=== PATIENT | female | born 1990 ===

== ENCOUNTER 2019-06-18 17:26 | Emergency (ER) | payer SELFPAY ==
[2019-06-18] MEDS ORDERED: Ketorolac Tromethamine 30 MG/ML VIAL ONE (17:51)
[2019-06-18 18:07] LABS: Bilirubin Negative (Negative); Blood, Urine Negative (Negative); Clarity Clear (Clear); Glucose, Urine (Dipstick) Normal (Negative); Leukocyte Negative Leu/uL (Negative); Nitrite Negative (Negative); Protein, Urine (Dipstick) 10 mg/dL (Neg-Trace)
[2019-06-18 18:11] LABS: Pregnancy Test - Urine (BHCG) Negative (Negative)
[2019-06-18 18:12] LABS: Pregu Control Background? CLEAR/WHITE (CLR/WHITE); Pregu Control Bar Appear? YES (CONTROL BAR); Specific Gravity 1.027 (1.002-1.036)
== END 2019-06-18 19:24 | disposition home or self-care (01) ==
LOC: ERS 17:26
DX: R10.9 Unspecified abdominal pain (principal); F17.210 Nicotine dependence, cigarettes, uncomplicated; Z87.442 Personal history of urinary calculi
CPT/HCPCS: 81003; 81025; 96372; 99284; J1885